=== PATIENT | male | born 1990 | race African-American/Black ===

== ENCOUNTER 2018-05-29 12:30 | Emergency (ER) | payer MEDICAID, OTHER ==
[2018-05-29] MEDS ORDERED: OSELTAMIVIR 75 MG CAP ONE (14:16)
--- NOTE | 2018-05-29 14:36 | ER ---
Nurse's Notes [facility] Name: Srinath Grande III Age: 27 yrs Sex: Male : 1990 Arrival Date: 05/29/2018 Time: 12:49 Bed 9 Private MD: Ochoa Ahn A Diagnosis: Influenza due to identified novel influenza A virus Presentation: 05/29 13:06 Presenting complaint: Patient states: fever, cough and nasal congestion for 2-3 days; hj T- 101.2 last night; took acetaminophen last night; denies sore throat;. Transition of care: patient was not received from another setting of care. Onset of symptoms was May 29, 2018. Risk Assessment: Do you want to hurt yourself or someone else? Patient reports no desire to harm self or others. Initial Sepsis Screen: Does the patient meet any 2 criteria? No. Patient's initial sepsis screen is negative. Does the patient have a suspected source of infection? No. Patient's initial sepsis screen is negative. Care prior to arrival: None. 13:06 Method Of Arrival: Ambulatory 13:06 Acuity: SINDI 4 hj Triage Assessment: 13:07 General: Appears in no apparent distress. uncomfortable, Behavior is calm, cooperative, hj appropriate for age. Pain: Denies pain. Historical: - Allergies: 13:07 No Known Allergies; hj - Home Meds: 13:07 None [Active]; hj - PMHx: 13:07 None; hj - PSHx: 13:07 None; hj - Immunization history:: Adult Immunizations up to date. - Social history:: Smoking status: Patient/guardian denies using tobacco, Patient/guardian denies using street drugs. - Ebola Screening: : Patient negative for fever greater than or equal to 101.5 degrees Fahrenheit, and additional compatible Ebola Virus Disease symptoms Patient denies exposure to infectious person Patient denies travel to an Ebola-affected area in the 21 days before illness onset. Screenin:08 Abuse screen: Denies threats or abuse. Denies injuries from another. Nutritional hj screening: No deficits noted. Tuberculosis screening: No symptoms or risk factors identified. Fall Risk None identified. Vital Signs: 13:08 BP 150 / 99; Pulse 110; Resp 18; Temp 98.5(O); Pulse Ox 99% on R/A; Weight 99.79 kg; hj Height 5 ft. 10 in. (177.80 cm); Pain 0/10; 13:08 Body Mass Index 31.57 (99.79 kg, 177.80 cm) hj ED Course: 12:49 Patient arrived in ED. mr 12:49 Ochoa Ahn MD is Private Physician. mr 13:07 Triage completed. hj 13:08 Arm band placed on left wrist. hj 13:08 Patient has correct armband on for positive identification. Bed in low position. Call hj light in reach. Side rails up X 1. Adult w/ patient. 13:59 Mao Medina, JOHN is Primary Nurse. hj 14:03 Vick Stout PA is PHCP. jr8 14:03 Cal Rivera MD is Attending Physician. jr8 14:35 Ochoa Ahn MD is Referral Physician. jr8 14:56 No provider procedures requiring assistance completed. Patient did not have IV access hj during this emergency room visit. Administered Medications: 14:05 Drug: Tamiflu 75 mg Route: PO; hj 14:08 Follow up: Response: No adverse reaction hj Outcome: 14:36 Discharge ordered by . jr8 14:56 Discharged to home ambulatory. hj 14:56 Condition: stable 14:56 Discharge instructions given to patient, family, Instructed on discharge instructions, follow up and referral plans. medication usage, Demonstrated understanding of instructions, follow-up care, medications, Prescriptions given X 3. 14:56 Patient left the ED. hj Signatures: Sandrine Nelson mr Vick Stout PA PA jr8 Mao Medina RN RN hj Corrections: (The following items were deleted from the chart) 13:17 13:08 99.79 kg; Height 5 ft. 10 in.; BMI: 31.5; Pain 0/10; hj hj 13:19 13:08 Pulse 110bpm; Resp 18bpm; Pulse Ox 99% RA; Temp 98.5F Oral; 99.79 kg; Height 5 hj ft. 10 in.; BMI: 31.5; Pain 0/10; hj
--- NOTE | 2018-05-29 14:37 | EDPHYS ---
Physician Documentation [facility] Name: Srinath Grande III Age: 27 yrs Sex: Male : 1990 Arrival Date: 05/29/2018 Time: 12:49 Bed 9 Private MD: Ochoa Ahn, A ED Physician Cal Rivera HPI: 05/29 14:13 This 27 yrs old Black Male presents to ER via Ambulatory with complaints of Flu jr8 Symptoms. 14:13 Patient with flu symptoms that started 2 days ago. Severity of symptoms: At their worst jr8 the symptoms were mild in the emergency department the symptoms are unchanged. The patient has not experienced similar symptoms in the past. The patient has not recently seen a physician. Historical: - Allergies: 13:07 No Known Allergies; hj - Home Meds: 13:07 None [Active]; hj - PMHx: 13:07 None; hj - PSHx: 13:07 None; hj - Immunization history:: Adult Immunizations up to date. - Social history:: Smoking status: Patient/guardian denies using tobacco, Patient/guardian denies using street drugs. - Ebola Screening: : Patient negative for fever greater than or equal to 101.5 degrees Fahrenheit, and additional compatible Ebola Virus Disease symptoms Patient denies exposure to infectious person Patient denies travel to an Ebola-affected area in the 21 days before illness onset. ROS: 14:13 Eyes: Negative for injury, pain, redness, and discharge, Neck: Negative for injury, jr8 pain, and swelling, Cardiovascular: Negative for chest pain, palpitations, and edema, Abdomen/GI: Negative for abdominal pain, nausea, vomiting, diarrhea, and constipation, Back: Negative for injury and pain, MS/Extremity: Negative for injury and deformity, Skin: Negative for injury, rash, and discoloration, Neuro: Negative for headache, weakness, numbness, tingling, and seizure. 14:13 ENT: Positive for rhinorrhea, sinus congestion. 14:13 Respiratory: Positive for cough, Negative for dyspnea on exertion, shortness of breath, sputum production, wheezing. Exam: 14:13 Eyes: Pupils equal round and reactive to light, extra-ocular motions intact. Lids and jr8 lashes normal. Conjunctiva and sclera are non-icteric and not injected. Cornea within normal limits. Periorbital areas with no swelling, redness, or edema. ENT: Nares patent. No nasal discharge, no septal abnormalities noted. Tympanic membranes are normal and external auditory canals are clear. Oropharynx with no redness, swelling, or masses, exudates, or evidence of obstruction, uvula midline. Mucous membranes moist. Neck: Trachea midline, no thyromegaly or masses palpated, and no cervical lymphadenopathy. Supple, full range of motion without nuchal rigidity, or vertebral point tenderness. No Meningismus. Cardiovascular: Regular rate and rhythm with a normal S1 and S2. No gallops, murmurs, or rubs. Normal PMI, no JVD. No pulse deficits. Respiratory: Lungs have equal breath sounds bilaterally, clear to auscultation and percussion. No rales, rhonchi or wheezes noted. No increased work of breathing, no retractions or nasal flaring. Abdomen/GI: Soft, non-tender, with normal bowel sounds. No distension or tympany. No guarding or rebound. No evidence of tenderness throughout. Back: No spinal tenderness. No costovertebral tenderness. Full range of motion. Skin: Warm, dry with normal turgor. Normal color with no rashes, no lesions, and no evidence of cellulitis. MS/ Extremity: Pulses equal, no cyanosis. Neurovascular intact. Full, normal range of motion. Neuro: Awake and alert, GCS 15, oriented to person, place, time, and situation. Cranial nerves II-XII grossly intact. Motor strength 5/5 in all extremities. Sensory grossly intact. Cerebellar exam normal. Normal gait. Vital Signs: 13:08 BP 150 / 99; Pulse 110; Resp 18; Temp 98.5(O); Pulse Ox 99% on R/A; Weight 99.79 kg; hj Height 5 ft. 10 in. (177.80 cm); Pain 0/10; 13:08 Body Mass Index 31.57 (99.79 kg, 177.80 cm) MDM: 14:03 Patient medically screened. [facility] 14:13 Data reviewed: vital signs, nurses notes, lab test result(s), and as a result, I will jr8 discharge patient. Data interpreted: Pulse oximetry: on room air is 99 %. Interpretation: normal. Counseling: I had a detailed discussion with the patient and/or guardian regarding: the historical points, exam findings, and any diagnostic results supporting the discharge/admit diagnosis, lab results, the need for outpatient follow up, a family practitioner, to return to the emergency department if symptoms worsen or persist or if there are any questions or concerns that arise at home. 05/29 13:18 Order name: Flu; Complete Time: 14:03 Administered Medications: 14:05 Drug: Tamiflu 75 mg Route: PO; 14:08 Follow up: Response: No adverse reaction Disposition: 05/29/18 14:36 Discharged to Home. Impression: Influenza due to identified novel influenza A virus. - Condition is Stable. - Discharge Instructions: Influenza, Adult. - Prescriptions for Tamiflu 75 mg Oral Capsule - take 1 capsule by ORAL route every 12 hours for 5 days; 10 capsule. Tessalon Perles 100 mg Oral Capsule - take 1 capsule by ORAL route every 8 hours As needed; 15 capsule. Guaifenesin AC 10- 100 mg/5 mL Oral Liquid - take 10 milliliter by ORAL route every 4 hours As needed; 240 milliliter. - Medication Reconciliation Form, Thank You Letter, Antibiotic Education, Prescription Opioid Use form. - Follow up: Ochoa Ahn MD; When: 1 week; Reason: Recheck today's complaints, Continuance of care, Re-evaluation by your physician. - Problem is new. - Symptoms have improved. Addendum: 06/09/2018 08:19 Co-signature as Attending Physician, Cal Rivrea MD I agree with the assessment and k dr plan of care. Signatures: Dispatcher [employer] EDRI Cal Rivera MD MD [facility] Vick Stout PA PA jr8 Mao Medina RN RN Corrections: (The following items were deleted from the chart) 05/29 14:56 14:36 05/29/2018 14:36 Discharged to Home. Impression: Influenza due to identified hj novel influenza A virus. Condition is Stable. Forms are Medication Reconciliation Form, Thank You Letter, Antibiotic Education, Prescription Opioid Use. Follow up: Ochoa Ahn; When: 1 week; Reason: Recheck today's complaints, Continuance of care, Re-evaluation by your physician. Problem is new. Symptoms have improved. jr8
== END 2018-05-29 14:56 | disposition home or self-care (01) ==
LOC: ER 12:30
DX: J10.1 Influenza due to other identified influenza virus with other respiratory manifestations (principal)
CPT/HCPCS: 87804; 99283